=== PATIENT | female | born 1950 | race Caucasian/White ===

== ENCOUNTER 2019-05-05 16:36 | Emergency (ER) | payer MEDICARE ==
[2019-05-05 17:28] VITALS: BP 138/87; PULSE 98
--- NOTE | 2019-05-05 18:38 | CR ---
Right knee: AP, lateral and sunrise patellar views of the right knee were obtained. Medial and lateral joint spaces are preserved in height. Joint space narrowing is noted within the lateral patellofemoral joint. No acute fracture or other abnormality is appreciated. Impression: 1. Degenerative change within the lateral patellofemoral joint. 2. No additional abnormality is appreciated on 3 view right knee exam. Diagnostic code #2 Study was dictated in [place] Standard Time
[2019-05-05] MEDS ORDERED: Lidocaine 5% Oint 35.44 GM Tube TOP ONE (18:43)
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
[2019-05-05] MEDS ORDERED: Lidocaine 5% 700 MG Patch TOP ONE (18:48)
== END 2019-05-05 19:20 | disposition home or self-care (01) ==
LOC: MW.ED 16:36
DX: M25.561 Pain in right knee (principal); G89.29 Other chronic pain; I83.93 Asymptomatic varicose veins of bilateral lower extremities; Z88.5 Allergy status to narcotic agent; Z86.718 Personal history of other venous thrombosis and embolism; Z79.01 Long term (current) use of anticoagulants
CPT/HCPCS: 73562; 99283; A9270